=== PATIENT | male | born 1985 | race Hispanic/Latino ===

== ENCOUNTER 2021-07-19 01:19 | Emergency (ER) | payer SELFPAY ==
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
[2021-07-19 02:10] LABS: Basophils # (Auto) 0.1 K/mm3 (0.0-0.1); Basophils % (Auto) 0.5 % (0.0-1.8); Eosinophils # (Auto) 0.3 K/mm3 (0.0-0.4); Eosinophils % (Auto) 2.2 % (0.0-4.3); Hematocrit 41.9 % (35.5-45.6); Hemoglobin 14.5 gm/dl (11.8-15.2); Lymphocytes % (Auto) 17.9 % (13.4-35.0); Mean Corpuscular HGB Conc 35 % (32-34); Mean Corpuscular Volume 89 fl (84-94); Monocytes # (Auto) 0.7 K/mm3 (0.0-0.8); Monocytes % (Auto) 6.5 % (0.0-7.3); Platelet Count 393 K/mm3 (140-440); Red Blood Count 4.72 M/mm3 (3.65-5.03); Red Cell Distribution Width 13.8 % (13.2-15.2)
[2021-07-19 02:29] LABS: BUN/Creatinine Ratio 23; Blood Urea Nitrogen 18 mg/dL (9-20); Calcium 9.7 mg/dL (8.4-10.2); Hemolysis Index 17
[2021-07-19] MEDS ORDERED: LORazepam 1 MG TAB PO ONE (03:49)
[2021-07-19] MEDS ORDERED: diphenhydrAMINE 25 MG CAP PO ONE (04:39)
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
[2021-07-19 09:42] LABS: Bacteria,Urine 1+ /HPF (Negative); Bilirubin,Urine NEG (Negative); Blood,Urine SM (Negative); Color,Urine Yellow (Yellow); Mucus,Urine 3+ /HPF; Protein,Urine <15 mg/dL mg/dL (Negative); Urobilinogen,Urine < 2.0 mg/dL (<2.0)
[2021-07-19 09:49] LABS: Amphetamine Screen,Urine Negative; Benzodiazepines Screen,Urine Negative; Cannabinoid Screen,Urine Negative; Cocaine Screen,Urine Negative; Methadone Screen,Urine Negative; Opiate Screen,Urine Negative
--- NOTE | 2021-07-19 12:06 | Consultation ---
History of Present Illness - Reason for Consult Consult date: 07/19/21 Reason for consult: suicidal ideation - History of Present Psychiatric Illness ED Note: 35-year-old male, history of PTSD, bipolar disorder, anxiety, presents to ED with suicidal ideations x1 week. Patient reports plan to jump in front of traffic. He denies any HI or hallucinations. Patient denies any recent drug use. Patient reports previous suicide attempt several years ago in which he attempted to hang himself. Patient not currently on any psychiatric medication. Byron Monahan is a 35 year old male with history of Anxiety, PTSD, Bipolar disorder who presents to the ED with suicidal ideation. In my interview with the patient, he is calm, alert and oriented x 3. The patient reports that he was recently admitted in a psychiatric inpatient facility for suicidal ideation; states he was unable to afford filling his prescriptions. The patient endorses racing thoughts which he states has been going on for the past 2 weeks. He rep orts being depressed and having suicidal ideation with no plan and denies hallucinations. PAST PSYCHIATRIC HISTORY Diagnoses: Bipolar, Anxiety, PTSD Suicide attempts or Self-harm behavior: Yes Prior psychiatric hospitalizations: Yes Substance Abuse history: Heroine Previous psychiatric medications tried: Xanax Outpatient treatment:unknown PAST MEDICAL HISTORY: Family Psychiatric History: None reported or documented SOCIAL HISTORY Marital Status: Single Living Arrangements:Lives with mother Employment Status: Unemployed Access to guns/weapons:Denies Education: 11th grade History of Abuse: None reported Legal History: Unknown REVIEW OF SYSTEMS Constitutional: Negative for weight loss ENT: Negative for stridor Respiratory: Negative for cough or hemoptysis All other systems reviewed and are negative MENTAL STATUS EXAMINATION General Appearance and Behavior: Age appropriate, good hygiene, wearing appropriate clothes, good eye contact, cooperative with questioning Cooperation: Participating/engaged Psychomotor Behavior: unremarkable and within normal limits Mood:depressed Affect and affective range: congruent with mood Thought Process:Racing thoughts Thought Content: Suicidal Speech: Normal volume, Regular rate and rhythm. Intellectual Functioning: Average Suicidal Ideation: Yes Homicidal Ideation: Denies Hallucinations: Denies Delusions: None elicited Impulse Control: Limited Insight and Judgment: limited insight and poor judgment Memory: Normal Attention: Normal Orientation: Alert, oriented. Assessment and Plan (1) Bipolar Disorder Current Visit: No Status: Acute RECOMMENDATIONS Continue 1013 Continue home medications Start Depakote 125mg po BID Start Seroquel 25mg po BID Risks, benefits and alternatives of medications discussed with the patient, questions answered and consent obtained from patient. PSYCHOTHERAPY: Supportive psychotherapy provided MEDICAL: Per primary team DELIRIUM PRECAUTIONS: Please re-orient patient frequently, keep lights on during the day, and minimize benzodiazepines and opiates as these medications could worsen patient's confusion. DRAWER LINER: non indicated DISPOSITION: Recommend acute inpatient psychiatric hospitalization at this time. FOLLOW-UP: Will follow. Thank you for the consult. Please contact with any questions and/or concerns. Medications and Allergies Allergies Allergy/AdvReac Type Severity Reaction Status Date / Time No Known Allergies Allergy Verified 07/19/21 01:34 Home Medications Medication Instructions Recorded Confirmed Last Taken Type ALPRAZolam [Xanax TAB] 0.25 mg PO BID 07/19/21 07/19/21 Unknown History Buprenorphine HCl/Naloxone HCl 1 film SL QDAY 07/19/21 07/19/21 Unknown History [Suboxone 8 mg-2 mg SL Film] Mental Status Exam - Vital signs Last Vital Signs Temp 98.4 F 07/19/21 08:39 Pulse 121 H 07/19/21 08:39 Resp 16 07/19/21 08:52 BP 125/87 07/19/21 08:39 Pulse Ox 98 07/19/21 08:52 Results Result Diagrams: 07/19/21 01:58 07/19/21 01:58 Abnormal lab results 07/19/21 07/19/21 07/19/21 Range/Units 01:58 01:58 01:58 WBC 11.4 H (4.5-11.0) K/mm3 MCHC 35 H (32-34) % Seg Neutrophils % 72.9 H (40.0-70.0) % Seg Neutrophils # 8.3 H (1.8-7.7) K/mm3 Glucose 118 H (75-100) mg/dL Salicylates < 0.3 L (2.8-20.0) mg/dL Acetaminophen (10.0-30.0) ug/mL 07/19/21 Range/Units 01:58 WBC (4.5-11.0) K/mm3 MCHC (32-34) % Seg Neutrophils % (40.0-70.0) % Seg Neutrophils # (1.8-7.7) K/mm3 Glucose (75-100) mg/dL Salicylates (2.8-20.0) mg/dL Acetaminophen 5.0 L (10.0-30.0) ug/mL All other labs normal.
[2021-07-19] MEDS: DIVALPROEX DR 125 MG TAB PO SCH ×2 (12:33→22:00)
[2021-07-19] MEDS: ALPRAZolam 0.25 MG TAB PO SCH ×2 (12:34→22:00)
[2021-07-19] MEDS: QUEtiapine 25 MG TAB PO SCH ×2 (12:34→22:02)
--- NOTE | 2021-07-19 20:34 | Event Note ---
Awaiting placement to inpatient psychiatric surgery. Patient is medically clear
[2021-07-19 21:21] LABS: Basophils # (Auto) 0.1 K/mm3 (0.0-0.1); Eosinophils # (Auto) 0.6 K/mm3 (0.0-0.4); Eosinophils % (Auto) 6.1 % (0.0-4.3); Hematocrit 42.3 % (35.5-45.6); Lymphocytes # (Auto) 2.6 K/mm3 (1.2-5.4); Lymphocytes % (Auto) 25.9 % (13.4-35.0); Mean Corpuscular HGB Conc 33 % (32-34); Mean Corpuscular Volume 88 fl (84-94); Monocytes # (Auto) 0.6 K/mm3 (0.0-0.8); Monocytes % (Auto) 6.3 % (0.0-7.3); Platelet Count 346 K/mm3 (140-440)
--- NOTE | 2021-07-20 08:55 | Progress Note ---
Subjective - Reason for Consult Consult date: 07/20/21 Reason for consult: SI - Chief Complaint Chief complaint: The patient was seen today. He endorses suicidal thoughts with no plan. He also verbalizes struggling with heroine addiction and states he's been clean for about 2 months. He is asking for suboxone. The patient says he is stressed and has a lot going on. He says he is depressed and anxious. He makes poor eye contact. He says he has a history of PTSD, bipolar and anxiety and has only been taking suboxone and xanax. The patient says he could not afford to go to primary or get [facility]. He denies hallucinations of any kind. REVIEW OF SYSTEMS Constitutional: Negative for weight loss ENT: Negative for stridor Respiratory: Negative for cough or hemoptysis All other systems reviewed and are negative MENTAL STATUS EXAMINATION General Appearance and Behavior: Age appropriate, good hygiene, wearing appropriate clothes, poor eye contact, cooperative with questioning Cooperation: Participating/engaged Psychomotor Behavior: unremarkable and within normal limits Mood: depressed Affect and affective range: congruent with mood Thought Process: Racing thoughts Thought Content: Suicidal Speech: Normal volume, Regular rate and rhythm. Intellectual Functioning: Average Suicidal Ideation: Yes Homicidal Ideation: Denies Hallucinations: Denies Delusions: None elicited Impulse Control: Limited Insight and Judgment: limited insight and poor judgment Memory: Normal Attention: Normal Orientation: Alert, oriented. Assessment and Plan (1) Bipolar Disorder (2) Opioid Dependence (3) Generalized Anxiety Disorder RECOMMENDATIONS Continue 1013 Continue home medications Depakote 125mg po BID Seroquel 25mg po BID Start Zoloft 25mg po daily Start Vistaril 25mg po BID Risks, benefits and alternatives of medications discussed with the patient, questions answered and consent obtained from patient. PSYCHOTHERAPY: Supportive psychotherapy provided MEDICAL: Per primary team DELIRIUM PRECAUTIONS: Please re-orient patient frequently, keep lights on during the day, and minimize benzodiazepines and opiates as these medications could worsen patient's confusion. HAND LACER: non indicated DISPOSITION: Recommend acute inpatient psychiatric hospitalization at this time. FOLLOW-UP: Will follow. Thank you for the consult. Please contact with any questions and/or concerns. Mental Status Exam - Vital signs Last Vital Signs Temp 98.1 F 07/19/21 19:05 Pulse 104 H 07/19/21 19:05 Resp 16 07/19/21 19:54 BP 128/73 07/19/21 19:05 Pulse Ox 99 07/19/21 19:54
[2021-07-20] MEDS: DIVALPROEX DR 125 MG TAB PO SCH ×2 (09:37→22:12)
[2021-07-20] MEDS: QUEtiapine 25 MG TAB PO SCH ×2 (09:38→22:12)
[2021-07-20] MEDS: hydrOXYzine PAMOATE 25 MG CAP PO SCH ×2 (09:38→22:12)
[2021-07-20] MEDS: ALPRAZolam 0.25 MG TAB PO SCH ×2 (09:38→22:12)
[2021-07-20] MEDS: SERTRALINE 25 MG TAB PO SCH (09:38)
--- NOTE | 2021-07-20 10:18 | Event Note ---
Date: 07/20/21 The patient was evaluated in the emergency department for symptoms described in the history of present illness. He/she was evaluated in the context of the global COVID-19 pandemic, which necessitated consideration that the patient might be at risk for infection with the virus that causes COVID-19. Institutional protocols and algorithms that pertain to the evaluation of patients at risk for COVID-19 are in a state of rapid change based on information released by regulatory bodies including the CDC and federal and state organizations. These policies and algorithms were followed during the patient's care in the emergency department. Please note that these policies, procedures and recommendations changed on a rapid basis. Laboratory studies, vital signs, nursing documentation, ER documentation, and psychiatric documentation are reviewed and appreciated. Nursing team reports no acute events this morning or concerns. The patient is awake not in any acute distress at this time. The patient was deemed medically suitable for psychiatric disposition and placement during his initial ER evaluation. The patient continues to remain m edically suitable for psychiatric placement and disposition. He is currently pending psychiatric placement. Vital Signs 07/19/21 07/19/21 07/19/21 01:34 03:25 08:39 Temperature 98.6 F 98.4 F Pulse Rate 106 H 121 H Respiratory 18 16 Rate Blood Pressure 120/83 [Left] Blood Pressure 125/87 [Right] O2 Sat by Pulse 98 98 98 Oximetry 07/19/21 07/19/21 07/19/21 08:52 19:05 19:54 Temperature 98.1 F Pulse Rate 104 H Respiratory 16 18 16 Rate Blood Pressure [Left] Blood Pressure 128/73 [Right] O2 Sat by Pulse 98 99 99 Oximetry Lab Results 07/19/21 07/19/21 07/19/21 Range/Units 01:58 01:58 01:58 WBC 11.4 H (4.5-11.0) K/mm3 RBC 4.72 (3.65-5.03) M/mm3 Hgb 14.5 (11.8-15.2) gm/dl Hct 41.9 (35.5-45.6) % MCV 89 (84-94) fl MCH 31 (28-32) pg MCHC 35 H (32-34) % RDW 13.8 (13.2-15.2) % Plt Count 393 (140-440) K/mm3 Lymph % (Auto) 17.9 (13.4-35.0) % [place] % (Auto) 6.5 (0.0-7.3) % Eos % (Auto) 2.2 (0.0-4.3) % Baso % (Auto) 0.5 (0.0-1.8) % Lymph # (Auto) 2.0 (1.2-5.4) K/mm3 [place] # (Auto) 0.7 (0.0-0.8) K/mm3 Eos # (Auto) 0.3 (0.0-0.4) K/mm3 Baso # (Auto) 0.1 (0.0-0.1) K/mm3 Seg Neutrophils % 72.9 H (40.0-70.0) % Seg Neutrophils # 8.3 H (1.8-7.7) K/mm3 Sodium 141 (137-145) mmol/L Potassium 3.8 (3.6-5.0) mmol/L Chloride 103.3 (98-107) mmol/L Carbon Dioxide 23 (22-30) mmol/L Anion Gap 19 mmol/L BUN 18 (9-20) mg/dL Creatinine 0.8 (0.8-1.3) mg/dL Estimated GFR > 60 ml/min BUN/Creatinine Ratio 23 % Glucose 118 H (75-100) mg/dL Calcium 9.7 (8.4-10.2) mg/dL Urine Color (Yellow) Urine Turbidity (Clear) Urine pH (5.0-7.0) Ur Specific [place] (1.003-1.030) Urine Protein (Negative) mg/dL Urine Glucose (UA) (Negative) mg/dL Urine Ketones (Negative) mg/dL Urine Blood (Negative) Urine Nitrite (Negative) Urine Bilirubin (Negative) Urine Urobilinogen (<2.0) mg/dL Ur Leukocyte Esterase (Negative) Urine WBC (Auto) (0.0-6.0) /HPF Urine RBC (Auto) (0.0-6.0) /HPF U Epithel Cells (Auto) (0-13.0) /HPF Urine Bacteria (Auto) (Negative) /HPF Urine Mucus /HPF Salicylates < 0.3 L (2.8-20.0) mg/dL Urine Opiates Screen Urine Methadone Screen Acetaminophen (10.0-30.0) ug/mL Ur Barbiturates Screen Ur Phencyclidine Scrn Ur Amphetamines Screen U Benzodiazepines Scrn Urine Cocaine Screen U Marijuana (THC) Screen Drugs of Abuse Note Plasma/Serum Alcohol (0-0.07) % 07/19/21 07/19/21 07/19/21 Range/Units 01:58 01:58 20:58 WBC 10.0 (4.5-11.0) K/mm3 RBC 4.80 (3.65-5.03) M/mm3 Hgb 14.0 (11.8-15.2) gm/dl Hct 42.3 (35.5-45.6) % MCV 88 (84-94) fl MCH 29 (28-32) pg MCHC 33 (32-34) % RDW 14.0 (13.2-15.2) % Plt Count 346 (140-440) K/mm3 Lymph % (Auto) 25.9 (13.4-35.0) % [place] % (Auto) 6.3 (0.0-7.3) % Eos % (Auto) 6.1 H (0.0-4.3) % Baso % (Auto) 1.0 (0.0-1.8) % Lymph # (Auto) 2.6 (1.2-5.4) K/mm3 [place] # (Auto) 0.6 (0.0-0.8) K/mm3 Eos # (Auto) 0.6 H (0.0-0.4) K/mm3 Baso # (Auto) 0.1 (0.0-0.1) K/mm3 Seg Neutrophils % 60.7 (40.0-70.0) % Seg Neutrophils # 6.1 (1.8-7.7) K/mm3 Sodium (137-145) mmol/L Potassium (3.6-5.0) mmol/L Chloride (98-107) mmol/L Carbon Dioxide (22-30) mmol/L Anion Gap mmol/L BUN (9-20) mg/dL Creatinine (0.8-1.3) mg/dL Estimated GFR ml/min BUN/Creatinine Ratio % Glucose (75-100) mg/dL Calcium (8.4-10.2) mg/dL Urine Color (Yellow) Urine Turbidity (Clear) Urine pH (5.0-7.0) Ur Specific [place] (1.003-1.030) Urine Protein (Negative) mg/dL Urine Glucose (UA) (Negative) mg/dL Urine Ketones (Negative) mg/dL Urine Blood (Negative) Urine Nitrite (Negative) Urine Bilirubin (Negative) Urine Urobilinogen (<2.0) mg/dL Ur Leukocyte Esterase (Negative) Urine WBC (Auto) (0.0-6.0) /HPF Urine RBC (Auto) (0.0-6.0) /HPF U Epithel Cells (Auto) (0-13.0) /HPF Urine Bacteria (Auto) (Negative) /HPF Urine Mucus /HPF Salicylates (2.8-20.0) mg/dL Urine Opiates Screen Urine Methadone Screen Acetaminophen 5.0 L (10.0-30.0) ug/mL Ur Barbiturates Screen Ur Phencyclidine Scrn Ur Amphetamines Screen U Benzodiazepines Scrn Urine Cocaine Screen U Marijuana (THC) Screen Drugs of Abuse Note Plasma/Serum Alcohol < 0.01 (0-0.07) % 07/19/21 07/19/21 Range/Units Unknown Unknown WBC (4.5-11.0) K/mm3 RBC (3.65-5.03) M/mm3 Hgb (11.8-15.2) gm/dl Hct (35.5-45.6) % MCV (84-94) fl MCH (28-32) pg MCHC (32-34) % RDW (13.2-15.2) % Plt Count (140-440) K/mm3 Lymph % (Auto) (13.4-35.0) % [place] % (Auto) (0.0-7.3) % Eos % (Auto) (0.0-4.3) % Baso % (Auto) (0.0-1.8) % Lymph # (Auto) (1.2-5.4) K/mm3 [place] # (Auto) (0.0-0.8) K/mm3 Eos # (Auto) (0.0-0.4) K/mm3 Baso # (Auto) (0.0-0.1) K/mm3 Seg Neutrophils % (40.0-70.0) % Seg Neutrophils # (1.8-7.7) K/mm3 Sodium (137-145) mmol/L Potassium (3.6-5.0) mmol/L Chloride (98-107) mmol/L Carbon Dioxide (22-30) mmol/L Anion Gap mmol/L BUN (9-20) mg/dL Creatinine (0.8-1.3) mg/dL Estimated GFR ml/min BUN/Creatinine Ratio % Glucose (75-100) mg/dL Calcium (8.4-10.2) mg/dL Urine Color Yellow (Yellow) Urine Turbidity Slightly-cloudy (Clear) Urine pH 5.0 (5.0-7.0) Ur Specific [place] 1.020 (1.003-1.030) Urine Protein <15 mg/dl (Negative) mg/dL Urine Glucose (UA) Neg (Negative) mg/dL Urine Ketones Neg (Negative) mg/dL Urine Blood Sm (Negative) Urine Nitrite Neg (Negative) Urine Bilirubin Neg (Negative) Urine Urobilinogen < 2.0 (<2.0) mg/dL Ur Leukocyte Esterase Neg (Negative) Urine WBC (Auto) 4.0 (0.0-6.0) /HPF Urine RBC (Auto) 3.0 (0.0-6.0) /HPF U Epithel Cells (Auto) 1.0 (0-13.0) /HPF Urine Bacteria (Auto) 1+ (Negative) /HPF Urine Mucus 3+ /HPF Salicylates (2.8-20.0) mg/dL Urine Opiates Screen Negative Urine Methadone Screen Negative Acetaminophen (10.0-30.0) ug/mL Ur Barbiturates Screen Negative Ur Phencyclidine Scrn Negative Ur Amphetamines Screen Negative U Benzodiazepines Scrn Negative Urine Cocaine Screen Negative U Marijuana (THC) Screen Negative Drugs of Abuse Note Disclamer Plasma/Serum Alcohol (0-0.07) %
[2021-07-20] MEDS ORDERED: diphenhydrAMINE 25 MG CAP PO PRN (10:20)
[2021-07-20] MEDS ORDERED: ACETAMINOPHEN 325 MG TAB PO PRN (10:20)
[2021-07-20] MEDS ORDERED: LORazepam 2 MG/ML VIAL IM PRN (15:07)
[2021-07-20] MEDS ORDERED: hydrOXYzine HCL 100 MG/2 ML INJ IM ONE (23:07)
[2021-07-21] MEDS: ALPRAZolam 0.25 MG TAB PO SCH (09:31)
[2021-07-21] MEDS: hydrOXYzine PAMOATE 25 MG CAP PO SCH (09:31)
[2021-07-21] MEDS: QUEtiapine 25 MG TAB PO SCH (09:31)
[2021-07-21] MEDS: DIVALPROEX DR 125 MG TAB PO SCH (09:31)
[2021-07-21] MEDS: SERTRALINE 25 MG TAB PO SCH (09:32)
--- NOTE | 2021-07-21 13:55 | Event Note ---
No acute issues. Patient is medically clear for psychiatric care. Patient has been accepted to [facility]. Transportation has been arranged by mental health team.
[2021-07-21 18:09] VITALS: BP 138/78
== END 2021-07-21 18:07 ==
LOC: ED 01:19 → EEVIPCON 01:19 → ED 07-21 18:07
DX: F31.9 Bipolar disorder, unspecified (principal); R45.851 Suicidal ideations; Z20.822 Contact with and (suspected) exposure to COVID-19; Y04.8XXA Assault by other bodily force, initial encounter; Y93.89 Activity, other specified; Y92.89 Other specified places as the place of occurrence of the external cause; Y99.8 Other external cause status
CPT/HCPCS: 36415; 70450; 72125; 80048; 80307; 81001; 85025; 96372; 99284; J2060; J3410; Q0177; U0003; 80320; G0480